=== PATIENT | male | born 1965 | race American Indian/Alaskan Native ===

== ENCOUNTER 2020-03-16 08:32 | Day surgery (SDC) | payer OTHER ==
[~2020-03-16 08:32] MED LIST: ACETAMINOPHEN 500 MG TAB PO SCH; LACTATED RINGERS 1,000 ML IV SCH; MIDAZOLAM 2 MG/2 ML INJ IV NR; ceFAZolin/Water 2 GM/20 ML 2 GM/20 ML SYRINGE IV NR
[2020-03-16] MEDS ORDERED: HYDROmorphone 1 MG/1 ML INJ IV PRN (09:05)
[2020-03-16] MEDS ORDERED: ONDANSETRON 4 MG/2 ML INJ IV PRN (09:05)
--- NOTE | 2020-03-16 09:09 | Anesthesia Day of Surgery ---
Anesthesia Day of Surgery - Day of Surgery Patient Examined: Yes Patient H&P Reviewed: Yes Patient is NPO: Yes
--- NOTE | 2020-03-16 09:09 | Anesthesia Consultation ---
Anesthesia Consult and Med Hx Date of service: 03/16/20 - Airway Anesthetic Teeth Evaluation: Good ROM Head & Neck: Adequate Mental/Hyoid Distance: Adequate Mallampati Class: Class III Intubation Access Assessment: Possibly Difficult - Pulmonary Exam CTA: Yes - Cardiac Exam Cardiac Exam: RRR - Pre-Operative Health Status ASA Pre-Surgery Classification: ASA2 Proposed Anesthetic Plan: General - Pulmonary Hx Smoking: Yes (THC) Hx Respiratory Symptoms: No Hx Sleep Apnea: No (EMMY PRE SCREEN HIGH RISK) - Cardiovascular System Hx Hypertension: No Hx Heart Attack/AMI: No Hx Percutaneous Transluminal Coronary Angioplasty (PTCA): No Hx Cardia Arrhythmia: No - Central Nervous System CVA: No Hx Back Pain: Yes (LOWER BACK) Hx Psychiatric Problems: Yes (PTSD, anxiety) - Endocrine Hx Renal Disease: No Hx Liver Disease: No Hx Insulin Dependent Diabetes: No Hx Non-Insulin Dependent Diabetes: No Hx Thyroid Disease: No - Other Systems Hx Substance Use: Yes (THC) Hx Obesity: No
[2020-03-16] MEDS ORDERED: ONDANSETRON 4 MG/2 ML INJ ONE (10:45)
[2020-03-16] MEDS ORDERED: dexAMETHasone 20 MG/5 ML VIAL ONE (10:45)
[2020-03-16] MEDS ORDERED: LIDOCAINE MPF (2%) 20 MG/1 ML VIAL 5 ML ONE (10:45)
[2020-03-16] MEDS ORDERED: HYDROmorphone 1 MG/1 ML INJ ONE (10:46)
[2020-03-16] MEDS ORDERED: propofoL 200 MG/20 ML VIAL IV ONE (10:46)
[2020-03-16 10:55] LABS: Alanine Aminotransferase 13 units/L (7-56); BUN/Creatinine Ratio 15; Blood Urea Nitrogen 12 mg/dL (9-20); Calcium 9.7 mg/dL (8.4-10.2); Hemolysis Index 31
[2020-03-16] MEDS ORDERED: BUPIVACAINE/PF (0.5%) 5 MG/1 ML 30 ML VIAL INFILTRATI ONE ×2 (11:41→11:56)
[2020-03-16] MEDS ORDERED: LIDOCAINE (1%) 10 MG/1 ML VIAL 20 ML MDV ONE (11:41)
[2020-03-16] MEDS ORDERED: LIDOCAINE (1%) 10 MG/1 ML VIAL 20 ML MDV INFILTRATI ONE (11:56)
[2020-03-16] MEDS ORDERED: SODIUM CHLORIDE 0.9% IRR 1,500 ML BOTTLE IR ONE (11:56)
--- NOTE | 2020-03-16 12:16 | Short Stay Summary ---
Short Stay Documentation Date of service: 03/16/20 - History Principal diagnosis: mass of right abdominal wall H&P: obtained from office - Allergies and Medications Current Medications: Allergies No Known Allergies Allergy (Verified 03/16/20 11:18) Home Medications Medication Instructions Recorded Confirmed Last Taken Type C-1000 2,000 mg PO DAILY 03/12/20 03/16/20 03/13/20 08:00 History Active Medications Acetaminophen (Tylenol) 1,000 mg PO PREOP ZIA Stop: 03/16/20 23:59 Last Admin: 03/16/20 10:40 Dose: 1,000 mg Documented by: Hydromorphone HCl (Dilaudid) 0.5 mg IV Q10MIN PRN PRN Reason: Pain , Severe (7-10) Stop: 03/16/20 23:00 Lactated Ringer's (Lactated Ringers) 1,000 mls @ 100 mls/hr IV DIRECT ZIA Stop: 03/16/20 23:59 Last Admin: 03/16/20 09:55 Dose: 100 mls/hr Documented by: Cefazolin Sodium (Ancef/Sterile Water 2 Gm/20 Ml) 2 gm in 20 mls @ 80 mls/hr IV PREOP NR Stop: 03/16/20 21:00 Midazolam HCl (Versed) 2 mg IV PREOP NR Stop: 03/16/20 23:59 Last Admin: 03/16/20 11:09 Dose: 2 mg Documented by: Ondansetron HCl (Zofran) 4 mg IV ONCE PRN PRN Reason: Nausea And Vomiting Stop: 03/16/20 23:00 - Brief post op/procedure progress note Date of procedure: 03/16/20 Pre-op diagnosis: soft tissue mass right lower abdominal wall Post-op diagnosis: same Procedure: excision of mass of right lower abdominal wall Anesthesia: GETA, local Findings: 3 cm cyst of abdominal wall Surgeon: RM LA Estimated blood loss: minimal Pathology: list (cyst of right abdominal wall) Specimen disposition: to lab Condition: stable - Hospital course Hospital course: Pt observed in PACU and discharged to home in stable condition when criteria met. - Disposition Condition at discharge: Good Disposition: DC-01 TO HOME OR SELFCARE Short Stay Discharge Plan Activity: no restrictions Diet: regular Wound: open to air, per your surgeon's advice (May shower tomorrow. Pat incisions dry and do not scrub. Do not submerge incision in water like baths, hottubs, pools.) Follow up with: [facility] [Primary Care Provider] - 7 Days RM LA DO [Staff Physician] - 14 Days
[2020-03-16] MEDS ORDERED: LACTATED RINGERS 1,000 ML ONE (12:24)
[2020-03-16 13:38] VITALS: BP 134/73
--- NOTE | 2020-03-19 13:09 | Operative Report ---
Operative Report Operative Report: Date of procedure: 03/16/20 Pre-op diagnosis: soft tissue mass right lower abdominal wall Post-op diagnosis: same Procedure: excision of mass of right lower abdominal wall Anesthesia: DOROTAA, local Findings: 3 cm cyst of abdominal wall Surgeon: RM LA Estimated blood loss: minimal Pathology: list (cyst of right abdominal wall) Specimen disposition: to lab Condition: stable Hospital course: Pt observed in PACU and discharged to home in stable condition when criteria met. HPI and Indication: Patient is a 55-year-old male who presented to the office for a workup of a abdominal wall mass. It was recommended that the mass being excised. The patient was set up for an elective excision. After all risks were discussed and questions answered, consent was signed in the office. Procedure in detail: Patient was identified in the preoperative area, taken back to the operating room, placed on the operating room table in supine position. After anesthesia was induced, the right lower abdomen at the site of the mass was prepped and draped in usual sterile fashion and a timeout was performed. Local anesthetic was injected into the skin at the intended incision site. An elliptical incision was made in the skin over the cyst using a 15 blade. Dissection was carried down through the skin using electrocautery. The cyst wall was chronically adhered to the surrounding tissue and skin. Using a combination of blunt dissection with a hemostat and sharp dissection with metzenbaum scissors, the cyst wall was carefully dissected away from the surrounding tissue circumferentially. Once normal fatty tissue was identified the cyst in its entirety was removed from the wound using Bovie electrocautery. This was then passed off the table as a specimen, cyst measured at 3cm. The wound was then irrigated and hemostasis achieved with electrocautery. Once hemostasis was ensured, the deep dermal layer was closed using interrupted 3-0 Vicryl sutures. The skin was closed with 4-0 Monocryl subcuticular stitches and skin glue. At the end of the case, all sponge, instrument, sharp counts were correct 2. The patient was awoken from anesthesia and taken to PACU in stable condition.
== END 2020-03-16 08:33 | disposition home or self-care (01) ==
LOC: OR 08:32
PROVIDERS: ATTEND Surgery
DX: R19.09 Other intra-abdominal and pelvic swelling, mass and lump (principal); L72.0 Epidermal cyst; Z20.828 Contact with and (suspected) exposure to other viral communicable diseases; H40.9 Unspecified glaucoma; K21.9 Gastro-esophageal reflux disease without esophagitis; F32.9 Major depressive disorder, single episode, unspecified; M19.90 Unspecified osteoarthritis, unspecified site; F41.9 Anxiety disorder, unspecified; Z98.890 Other specified postprocedural states; Z72.89 Other problems related to lifestyle; Z79.899 Other long term (current) drug therapy
CPT/HCPCS: 11403; 12032; 36415; 80053; 83735; 88304; 93005; J0690; J1100; J1170; J2250; J2405; J2704; J7120; U0003